=== PATIENT | male | born 1960 | race Caucasian/White ===

== ENCOUNTER 2021-08-16 21:56 | Inpatient (IN) | payer OTHER ==
[~2021-08-16] VITALS: Ht 172.7 cm; Wt 86.2 kg
[2021-08-16] MEDS ORDERED: LIDOCAINE VISCUS 2% 15 ML UDC MM ONE (22:30)
[2021-08-16] MEDS ORDERED: LIDOCAINE VISCUS 2% 15 ML UDC ONE (22:50)
[2021-08-16] MEDS ORDERED: HYDROCORTISONE RECTAL SUPP 25 MG EACH RC ONE (22:51)
[2021-08-16] MEDS ORDERED: HYDROMORPHONE 1 MG/1 ML DISP.SYRIN ONE (23:07)
[2021-08-16] MEDS ORDERED: HYDROMORPHONE 1 MG/1 ML DISP.SYRIN IM ONE (23:15)
[2021-08-16] MEDS ORDERED: MORPHINE SULFATE 2 MG/1 ML DISP.SYRIN IV ONE (23:45)
[2021-08-16] MEDS ORDERED: ONDANSETRON 4 MG/2 ML VIAL IV ONE (23:45)
[2021-08-16] MEDS ORDERED: ONDANSETRON 4 MG/2 ML VIAL ONE (23:55)
[2021-08-16] MEDS ORDERED: MORPHINE SULFATE 2 MG/1 ML DISP.SYRIN ONE (23:55)
[2021-08-17 00:09] LABS: MEAN CORPUSCULAR HEMOGLOBIN 30.7 uug (23.8-33.4); MEAN CORPUSCULAR VOLUME 87.9 fL (73.0-96.2); PLATELET COUNT (AUTO) 229 K/uL (152-348)
[2021-08-17 00:19] LABS: CARBON DIOXIDE 26 mmol/L (21-32); CHLORIDE 102 mmol/L (98-107); CREATININE 1.2 mg/dL (0.6-1.3); GLUCOSE 176 mg/dL (74-106); POTASSIUM 3.4 mmol/L (3.5-5.1); UREA NITROGEN, BLOOD 18 mg/dL (7-18)
[2021-08-17 00:31] LABS: ALANINE AMINOTRANSFERASE 48 U/L (16-63); ALKALINE PHOSPHATASE 138 U/L (50-136); ASPARTATE AMINOTRANSFERASE 23 U/L (15-37); BILIRUBIN,DIRECT 0.1 mg/dL (0.0-0.2); BILIRUBIN,TOTAL 0.5 mg/dL (0.2-1.0); TOTAL PROTEIN, SERUM 8.1 g/dL (6.4-8.2)
[2021-08-17] MEDS ORDERED: SWABABLE VALVE TRANSFER SET EA MC ONE (01:34)
[2021-08-17] MEDS ORDERED: IOHEXOL 350 100 ML INFUS..BTL ONE (01:34)
[2021-08-17] MEDS ORDERED: IV NORMAL SALINE 250 ML IV ONE (01:35)
[2021-08-17] MEDS ORDERED: ASPI81TA31 PO (01:59)
[2021-08-17] MEDS ORDERED: DOCU100C36 PO (01:59)
[2021-08-17] MEDS ORDERED: ESCI-9 PO (01:59)
[2021-08-17] MEDS ORDERED: FOLI1TAB94 PO (01:59)
[2021-08-17] MEDS ORDERED: METO-356 PO (01:59)
[2021-08-17] MEDS ORDERED: AMLO2.5T4 PO (01:59)
[2021-08-17] MEDS ORDERED: LORAZEPAM 2 MG/1 ML VIAL ONE (02:26)
[2021-08-17] MEDS ORDERED: LORAZEPAM 2 MG/1 ML VIAL IV ONE (02:30)
[2021-08-17] MEDS ORDERED: IV NORMAL SALINE 1000 ML BAG IV ONE (02:45)
[2021-08-17] MEDS ORDERED: METRONIDAZOLE 500 MG/NS 100 ML PIGGYBACK IV ONE (03:30)
[2021-08-17] MEDS ORDERED: levoFLOXacin 500 MG/D5W 100 ML ONE ×2 (04:40→08:52)
[2021-08-17] MEDS ORDERED: METRONIDAZOLE 500 MG/NS 100ML 100 ML IV ONE ×2 (04:40→08:52)
[2021-08-17] MEDS ORDERED: ONDANSETRON 4 MG/2 ML VIAL IV PRN (05:45)
[2021-08-17] MEDS ORDERED: POTASSIUM CHLORIDE 100 ML ONE (06:18)
[2021-08-17 06:30] LABS: HEMATOCRIT 36.2 % (36.7-47.1); MEAN CORPUSCULAR HEMOGLOBIN 30.3 uug (23.8-33.4); PLATELET COUNT (AUTO) 185 K/uL (152-348)
[2021-08-17] MEDS: IV NS 1000 ML 1,000 ML IV PRN ×2 (06:30→21:31)
[2021-08-17] MEDS: POTASSIUM CHLORIDE 50 ML IV SCH ×2 (06:30→07:30)
[2021-08-17 06:40] LABS: MAGNESIUM 1.9 mg/dL (1.8-2.4); POTASSIUM 3.7 mmol/L (3.5-5.1)
[2021-08-17] MEDS ORDERED: ACETAMINOPHEN 325 MG TABLET ONE (08:45)
[2021-08-17] MEDS: ACETAMINOPHEN 325 MG TABLET PO PRN ×3 (08:52→08:59)
[2021-08-17] MEDS: METRONIDAZOLE 500 MG/NS 100ML 500 MG in PREMIXED 1 EACH IV SCH ×4 (08:55→23:15)
[2021-08-17 09:29] LABS: THYROID STIMULATING HORMONE 1.542 mIU/mL (0.358-3.740)
[2021-08-17] MEDS: levoFLOXacin 500 MG/D5W 500 MG in PREMIXED 1 EACH IV SCH (09:30)
[2021-08-17] MEDS ORDERED: ATOR40TA PO (11:35)
[2021-08-17] MEDS ORDERED: METF-440 PO (12:54)
[2021-08-17] MEDS ORDERED: MIRALAX 17 GM POWD.PACK PO PRN (20:30)
[2021-08-17 20:50] VITALS: BP 123/75
[2021-08-17] MEDS ORDERED: DOCUSATE SODIUM 100 MG CAPSULE PO SCH (21:00)
[2021-08-18] MEDS: ACETAMINOPHEN 325 MG TABLET PO PRN (00:08)
[2021-08-18 04:00] VITALS: BP 126/77
[2021-08-18] MEDS: METRONIDAZOLE 500 MG/NS 100ML 500 MG in PREMIXED 1 EACH IV SCH (05:14)
[2021-08-18] MEDS: levoFLOXacin 500 MG/D5W 500 MG in PREMIXED 1 EACH IV SCH (06:11)
[2021-08-18 06:32] LABS: HEMATOCRIT 33.3 % (36.7-47.1); MEAN CORPUSCULAR HEMOGLOBIN 30.7 uug (23.8-33.4); MEAN CORPUSCULAR VOLUME 87.4 fL (73.0-96.2); PLATELET COUNT (AUTO) 162 K/uL (152-348)
[2021-08-18 06:42] LABS: CREATININE 0.8 mg/dL (0.6-1.3); MAGNESIUM 1.8 mg/dL (1.8-2.4); POTASSIUM 3.3 mmol/L (3.5-5.1)
[2021-08-18] MEDS ORDERED: PANTOPRAZOLE SODIUM 40 MG TABLET.DR PO SCH (07:00)
[2021-08-18] MEDS ORDERED: ASPIRIN EC 81 MG TABLET.DR PO SCH (09:00)
[2021-08-18] MEDS ORDERED: POTASSIUM CHLORIDE 20 MEQ TAB.PRT.SR PO ONE (09:30)
[2021-08-18] MEDS ORDERED: FLEET ENEMA 133 ML BOTTLE RC ONE (11:15)
[2021-08-18] MEDS ORDERED: MAGNESIUM CITRATE 296 ML BOTTLE PO ONE (11:15)
[2021-08-18 11:58] VITALS: BP 134/81
[2021-08-18] MEDS ORDERED: LEVO500T90 PO (13:23)
[2021-08-18] MEDS ORDERED: METR500T PO (13:23)
[2021-08-18] MEDS ORDERED: METRONIDAZOLE 500 MG TABLET PO SCH (14:00)
[2021-08-18 16:28] VITALS: BP 141/72
== END 2021-08-18 19:34 | disposition home or self-care (01) | DRG 389 ==
LOC: ER 22:01 → TRANSITION 08-17 06:20 → MEDSURG3 08-17 20:20
PROVIDERS: ADMIT Nurse Practitioner Acute Care; ATTEND Internal Medicine
DX: K56.41 Fecal impaction (principal); D68.59 Other primary thrombophilia; K52.89 Other specified noninfective gastroenteritis and colitis; E87.6 Hypokalemia; E11.9 Type 2 diabetes mellitus without complications; E27.9 Disorder of adrenal gland, unspecified; E78.5 Hyperlipidemia, unspecified; I10 Essential (primary) hypertension; Z90.49 Acquired absence of other specified parts of digestive tract; Z86.73 Personal history of transient ischemic attack (TIA), and cerebral infarction without residual deficits; Z87.891 Personal history of nicotine dependence; Z74.09 Other reduced mobility; Z79.82 Long term (current) use of aspirin; Z79.899 Other long term (current) drug therapy; Z20.822 Contact with and (suspected) exposure to COVID-19; R00.0 Tachycardia, unspecified
CPT/HCPCS: 36415; 71045; 71275; 74018; 83735; 84100; 84443; 84484; 85025; 85730; 93005; A4663; G0378; J1170; J1956; J2060; J2270; J2405; J3480; J3490; J7040; Q9967